=== PATIENT | male | born 1955 | race Caucasian/White ===

== ENCOUNTER 2022-01-16 05:35 | Day surgery (SDC) | payer OTHER ==
[~2022-01-16] VITALS: Ht 190.5 cm; Wt 155.0 kg
[~2022-01-16 05:35] MED LIST: ACETAMINOPHEN325 M1 PO; ALLOPURINOL100 MG PO; BYSTOLIC10 MG PO; CARAFATE1 GM PO; COREG25 MG PO; COZAAR25 MG PO; CYCLOBENZAPRINE10 MG PO; DICLOFENAC SODI75 MG PO; LIPITOR20 MG PO; MAGNESIUM OXID420 MG PO; NIACIN500 M1 PO; VITAMIN D250 MCG PO
--- NOTE | 2022-01-16 09:14 | NUR ---
PT ALERT, ORIENTED AND SUPPORTED BY HIS . SHE WILL RETURN FOR DC. PT ANXIOUS, GAVE TIME COMFORTING AND ENCOURAGING. PT REQUESTED PRAYER, WILL FOLLOW NEEDED
--- NOTE | 2022-01-16 09:18 | NUR ---
01/16/22 0918 Sushma Loya 0911 PATIENT ARRIVES TO PACU RESTING WITH EYES CLOSED. OPENS EYES WITH VERBAL STIMULI, UNABLE TO KEEP EYES OPEN. RESP EVEN, SLIGHTLY LABORED, HOB ELEVATED, ORAL AIRWAY IN PLACED. MASK AT 15 LITERS. 0915 PATIENT AWAKE OFF/ON, BUT VERY DROWSY. DOES NOT FOLLOW COMMANDS. PATIENT TRYING TO REACH FOR ORAL AIRWAY. ORAL AIRWAY REMOVED. MOUTH SUCTIONED WITH CLEAR SECRETIONS. RESP EVEN AND UNLABORED, MASK CONTINUES AT 15 LITERS.
--- NOTE | 2022-01-16 10:47 | NUR ---
1025: REPORT RECEIVED FROM SARAY GREGORY IN PACU AND PT TRANSFERRED TO [facility] VIA STRETCHER. PT TOLERATES MOVEMENT WITH NO C/O NAUSEA. CONT PULSE OXIMETER IN PLACE, SATS GREATER THAN 94% ON RA WHILE CONVERSING WITH RN. CPAP AT BEDSIDE READY TO USE IF PT WANTS TO REST. PT PROVIDED APPLE JUICE AND PUDDING PER REQUEST, TOLERATES WITH NO NAUSEA. PICTURES PROVIDED PER PT REQUEST. WILL PLAN TO CALL WITH UPDATE, CALL LIGHT WITHIN REACH.
--- NOTE | 2022-01-16 11:01 | OR ---
[facility] [address] [place], [place] [address] Signed DATE OF OPERATION: 01/16/2022 SURGEON: Carlito Vazquez MD PREOPERATIVE DIAGNOSES: 1. Chronic cholecystitis with biliary colic. 2. Morbid obesity with BMI of 44. 3. Fatty liver. POSTOPERATIVE DIAGNOSES: 1. Chronic cholecystitis with biliary colic. 2. Morbid obesity with BMI of 44. 3. Fatty liver. PROCEDURE: Laparoscopic cholecystectomy without intraoperative cholangiogram. ESTIMATED BLOOD LOSS: Minimal. FINDINGS: Patricio had a tremendously thick omentum. We almost could not pull it down off the liver and away from his gallbladder. We used a 2nd nurse to hold the fan retractor so we could access the triangle of [place]. He also has a fatty liver that is very thick and heavy and was beginning to separate from the gallbladder with elevation of the gallbladder. Also, his laboratory work and his ultrasound HIDA scan did not point us towards any common bile duct stones. Taken all factors into consideration, we decided to omit the intraoperative cholangiogram on this occasion. INDICATIONS: Patricio is a 67-year-old obese gentleman with a body mass index of 44. He has been having upper abdominal pain particularly after he eats. It has been over a year. He said it is so bad he often has to lay down after eating. The upper endoscopy showed minimal chronic inactive gastritis. CLOtest was negative for H pylori. His ultrasound was unremarkable except for his fatty liver. The HIDA scan showed that his gallbladder ejection fraction was quite low at 15%. Injection of the CCK actually reproduced his symptoms. I had reviewed all this with Patricio and his in the office. I gave them our brochure on the gallbladder. We discussed laparoscopic versus open cholecystectomy. We reviewed the expected intraop and postop course. They understand the location and function of the gallbladder. There is risk including, but not limited to bleeding, Electronically Signed By: CARLITO VAZQUEZ MD 01/16/22 1101 PATIENT NAME: PATRICIO YBARRA OPERATIVE REPORT DATE OF : 59 REPORT #: [id number] PHYSICIAN: CARLITO VAZQUEZ MD PCP: NICHELLE AGUIRRE NP REPORT IS CONFIDENTIAL AND NOT TO BE RELEASED WITHOUT AUTHORIZATION [facility] [address] [place] [id number] Signed infection, scarring, change in contour of the skin, damage to bowel, damage to the main bile duct, incisional hernias and other unforeseen comorbidities. They had expressed understanding and wished to proceed. DESCRIPTION OF PROCEDURE: I met with Arpan and his in our preop area. After this, he was taken into the operating room and placed in the supine position under general endotracheal tube anesthesia. He was given preoperative antibiotics along with subcutaneous heparin. SCDs were utilized. He was then prepped and draped in the usual sterile fashion. All trocars were placed in their usual positions under direct visualization of the camera without difficulty. It was quite impressive the thickness of his omentum. It actually took me a few minutes to pull the omentum down and away from the liver and his gallbladder. We introduced the fan retractor through the midepigastric midline and brought in a 2nd nurse to help retract. We carefully dissected out the triangle of [place] with our [place] dissector. We placed three clips across the cystic duct stump and divided the cystic duct stump sharply. We placed several clips on the cystic artery and its branches as we carefully removed the gallbladder from the gallbladder fossa with the help of the cautery. There was so much weight to his liver that the gallbladder was wanting to separate from the liver just with traction. Eventually, the gallbladder was free, we placed it into an EndoCatch bag. There were couple areas that were cauterized on the liver bed with excellent hemostasis. The area was irrigated and suctioned out until clear. We then closed the subxiphoid in the midepigastric trocar sites with interrupted 0 Vicryl sutures. The gallbladder had been placed into an EndoCatch bag and it was taken out through the supraumbilical trocar site. Pictures were taken on the back table for photodocumentation. After this, we closed the fascia of the supraumbilical trocar site with interrupted [id number] and simple 0 Vicryl sutures. Local anesthetic was copiously injected into all trocar sites. Each trocar site was irrigated and suctioned out until clear. The skin and dermis of each trocar site was closed with interrupted 3-0 subcuticular Monocryl sutures. We used our 5-0 fast absorbing plain gut suture to close the skin on the supraumbilical trocar site. Dry gauze and tape were then applied to all incisions. Arpan was awakened from his anesthesia, extubated in the OR and taken to the recovery room in stable condition. Carlito Vazquez MD ALB/MODL /[id number] Electronically Signed By: CARLITO VAZQUEZ MD 01/16/22 1101 PATIENT NAME: PTARICIO YBARRA OPERATIVE REPORT DATE OF : 59 REPORT #: [id number] PHYSICIAN: CARLITO VAZQUEZ MD PCP: NICHELLE AGUIRRE NP REPORT IS CONFIDENTIAL AND NOT TO BE RELEASED WITHOUT AUTHORIZATION [address] [place], [place] [address] Signed cc: MD Nichelle Daly NP Copies: CARLITO VAZQUEZ MD ~ Electronically Signed By: CARLITO VAZQUEZ MD 01/16/22 1101 PATIENT NAME: PATRICIO YBARRA OPERATIVE REPORT DATE OF : 59 REPORT #: [id number] PHYSICIAN: CARLITO VAZQUEZ MD PCP: NICHELLE AGUIRRE NP REPORT IS CONFIDENTIAL AND NOT TO BE RELEASED WITHOUT AUTHORIZATION
[2022-01-16] MEDS ORDERED: HYDROCODON-ACE1 EAC8 PO (13:13)
--- NOTE | 2022-01-16 13:28 | NUR ---
[id number]: PT HAS URGE TO VOID, UP TO SIDE OF BED WITH RN ASSIST. DENIES ANY DIZZINESS OR NAUSEA WITH POSITION CHANGE. PT PAINFUL WITH MOVEMENT, AMBULATES WITH SLOW AND STEADY GAIT TO BATHROOM WITH RN ASSIST. ABLE TO VOID APPROX 700 MLS YELLOW URINE. BACK TO DS RM 5 AND RATES PAIN 9/10. VERBAL ORDERS OBTAINED FROM DR. VAZQUEZ, SEE EMAR. FAMILY IN ROOM AT THIS TIME, PAIN SCRIPT PROVIDED AND EXIT TO FILL PRESCRIPTION. ICE TO UMBILICUS INCISION. 1330: AMBROCIO ALBERTO IN ROOM TO CHECK ON PT.
--- NOTE | 2022-01-16 14:41 | NUR ---
1425: PT WITH CALL FOR THIS RN, REPORTS URGE TO VOID. AMBULATES WITH STANDBY FROM THIS RN. STEADY GAIT, SHELLY WELL. SECOND SUCCESSFUL POST OP VOID. BACK TO ROOM 5 AND REQUESTS TO DRESS FOR DC. AT THE BEDSIDE TO ASSIST. VSS, RESP EVEN. PT REPORTS IMPROVING PAIN LEVEL AFTER LAST RX ADMIN, 01/04. 1435: DC INSTRUCTIONS PROVIDED AND DISCUSSED ORDERED. PT AND VOICE UNDERSTANDING AND DENY QUESTIONS AND CONCERNS AT THIS TIME 1440: WHEELED OFF OF UNIT BY THIS RN. TRANSFERS INTO VEHICLE INDEPENDENTLY AND APPROPRIATELY. NO PHYSICAL S/S OF DISTRESS AT THIS TIME
--- NOTE | 2022-01-17 15:00 | PATH ---
[facility] [address] [facility] [place], [place] [address] Signed SPECIMEN(S): A GALLBLADDER SPECIMEN SOURCE: A. GALLBLADDER CLINICAL HISTORY: Chronic cholecystitis. Laparoscopic cholecystectomy with intraoperative cholangiogram. FINAL PATHOLOGIC DIAGNOSIS: Gallbladder, cholecystectomy: - Gallbladder with features of mild chronic cholecystitis. NAL:cml:C2NR MICROSCOPIC EXAMINATION: Histologic sections of all submitted blocks are examined by light microscopy. These findings, together with the gross examination, support the pathologic diagnosis. GROSS DESCRIPTION: The specimen, labeled "KW, gallbladder," is received in formalin and consists of Specimen: Previously opened. Dimensions: 6.5 cm in length and 5.1 cm in inner circumference. Serosa: Violaceous and smooth. Cystic Duct: Unobstructed. Calculi: Calculi are not grossly identified within the gallbladder or within the container. Mucosa: [place] and velvety. Wall thickness: 0.7 cm. Lymph node: No pericystic lymph nodes are grossly identified. Additional: None. Genetic Counsellor sections are submitted in cassette (A1). JS (under the direct supervision of a pathologist) The Gross Description was prepared using a voice recognition system. The report was reviewed for accuracy; however, sound-alike word errors, addition and/or deletions may occur. If there is any question about this report, please contact Client Services. PERFORMING LABORATORY: The technical component was performed by [facility], [facility][note 3] Irvin Armstrong, PATIENT NAME: TAE YBARRA JEAN PATHOLOGY DATE OF : 59 REPORT #: [id number] PHYSICIAN: BRAN PATHOLOGY PCP: DAYNA AGUIRRE NP REPORT IS CONFIDENTIAL AND NOT TO BE RELEASED WITHOUT AUTHORIZATION [facility] [address] [place], [place] [address] [place] [address] (CLIA# [id number]).[facility], [address] [address] (CLIA# [id number]). Diagnostician: Negra Oviedo MD Pathologist Electronically Signed 01/17/2022 Copies: ~ PATIENT NAME: TAE YBARRA PATHOLOGY DATE OF : 59 REPORT #: [id number] PHYSICIAN: BRAN PATHOLOGY PCP: DAYNA AGUIRRE NP REPORT IS CONFIDENTIAL AND NOT TO BE RELEASED WITHOUT AUTHORIZATION
== END 2022-01-16 14:30 | disposition home or self-care (01) ==
LOC: DS 05:35
PROVIDERS: ATTEND Colon & Rectal Surgery
PROC: 0FT44ZZ Resection of Gallbladder, Percutaneous Endoscopic Approach (ICD-10-PCS; principal; 2022-01-16 06:45)
DX: K81.1 Chronic cholecystitis (principal); I10 Essential (primary) hypertension; K29.00 Acute gastritis without bleeding; E66.01 Morbid (severe) obesity due to excess calories; K76.0 Fatty (change of) liver, not elsewhere classified; Z68.41 Body mass index [BMI] 40.0-44.9, adult; Z88.8 Allergy status to other drugs, medicaments and biological substances
CPT/HCPCS: A9270; J0131; J0330; J0690; J1100; J1644; J1885; J2250; J2405; J2704; J2765; J3010; J7121